=== PATIENT | female | born 1985 | race Caucasian/White ===

== ENCOUNTER 2022-02-08 18:10 | Emergency (ER) | payer SELFPAY ==
[~2022-02-08] VITALS: Ht 167.6 cm; Wt 72.6 kg
[2022-02-08] MEDS ORDERED: LORAZEPAM INJ 2 MG/ML VIAL ONE ×2 (18:46→19:53)
[2022-02-08] MEDS ORDERED: LORAZEPAM INJ 2 MG/ML VIAL IM ONE ×2 (19:00→20:00)
--- NOTE | 2022-02-08 19:06 | NUR ---
URINE COLLECTED AND SENT TO LAB
[2022-02-08] MEDS ORDERED: CHLO25CA22 PO (20:42)
--- NOTE | 2022-02-08 21:13 | NUR ---
NOTIFIED ALLIE (BROTHER) BEING DISCHARGED. AWAITING CALL BACK FOR BROTHER REGARDING TRANSPORTATION
--- NOTE | 2022-02-08 21:19 | NUR ---
ALLIE MARTINEZ 15 MINUTES TO PRIME MINISTER PATIENT
--- NOTE | 2022-02-08 21:26 | NUR ---
Patient discharged to home in stable condition. Written and verbal after care instructions given. Patient verbalizes understanding of instruction. PT ambulatory with a steady gait
[2022-02-08 21:39] VITALS: BP 127/71
== END 2022-02-08 22:16 | disposition home or self-care (01) ==
LOC: ER 18:11
DX: F10.139 Alcohol abuse with withdrawal, unspecified (principal); Z79.899 Other long term (current) drug therapy; Y90.9 Presence of alcohol in blood, level not specified
CPT/HCPCS: 96372 ×2; 99284; J2060 ×2